=== PATIENT | female | born 1990 | race Asian ===

== ENCOUNTER 2016-06-27 16:18 | Emergency (ER) | payer MEDICAID ==
[2016-06-27] MEDS ORDERED: LIDOCAINE VISCOUS 2% 15 ML UDC MM STA (17:35)
[2016-06-27] MEDS ORDERED: HYDROcod/ACETAM 5/325 MG TABLET PO STA (17:35)
[2016-06-27] MEDS ORDERED: ONDANSETRON ODT 4 MG TABLET TL STA (17:35)
[2016-06-27] MEDS ORDERED: MAG HYDROX/AL HYDROX/SIMETH 30 ML UDC PO STA (17:35)
[2016-06-27] MEDS ORDERED: ONDANSETRON ODT 4 MG TABLET ONE (17:39)
[2016-06-27] MEDS ORDERED: LIDOCAINE VISCOUS 2% 15 ML UDC MM ONE (17:40)
[2016-06-27] MEDS ORDERED: HYDROcod/ACETAM 5/325 MG TABLET ONE (17:40)
[2016-06-27] MEDS ORDERED: MAG HYDROX/AL HYDROX/SIMETH 30 ML UDC ONE (17:40)
== END 2016-06-27 19:47 | disposition home or self-care (01) ==
DX: K29.70 Gastritis, unspecified, without bleeding (principal); R05 Cough
CPT/HCPCS: 36415; 71020; 80053; 83690; 85025; 87339; 99283; 99284; A9270; Q0162